=== PATIENT | male | born 1995 | race Caucasian/White ===

== ENCOUNTER 2018-03-16 20:22 | Emergency (ER) | payer BC ==
[2018-03-16 20:48] VITALS: BP 127/54
[2018-03-16] MEDS ORDERED: Tetracaine 0.5% OPTH.SOL 4 ML* 1 DROP BTL RIGHT EYE ONE (20:56)
[2018-03-16] MEDS ORDERED: Fluorescein Sod TOPICAL 0.6* 0.6 MG TEST OPHTHALMIC ONE (20:57)
--- NOTE | 2018-03-16 21:08 | UC ---
Eye Complaint HPI - HPI Summary HPI Summary: C/O ? FB 03/14/18. Seen [facility] and started on erythromycin opth oint for corneal abrasion. - History of Current Complaint Chief Complaint: UCEye Stated Complaint: RIGHT EYE CONCERN Time Seen by Provider: 03/16/18 20:54 Hx Obtained From: Patient Onset/Duration: Sudden Onset, Lasting Days - 2, Still Present, Worse Since - today Timing: Constant Severity Initially: Moderate Severity Currently: Severe Pain Intensity: 9 Location of Injury: Conjunctiva Character: Sharp, Foreign Body Sensation Aggravating Factor(s): Blinking, Other - erythromycin ointment Alleviating Factor(s): Darkness Related History: Diagnosed As: - corneal abrasion - Allergies/Home Medications Allergies/Adverse Reactions: Allergies Allergy/AdvReac Type Severity Reaction Status Date / Time shrimp Allergy Difficulty Verified 03/16/18 20:49 Breathing Home Medications: Home Medications Clear Eye Otc Drops 2 drop RIGHT EYE QID PRN 03/16/18 [History Confirmed ] Erythromycin OPTH OINT* [Erythromycin 0.5% OPTH OINT*] 1 applic RIGHT EYE QID [History Confirmed 03/16/18] PMH/Surg Hx/FS Hx/Imm Hx Previously Healthy: Yes - Surgical History Surgical History: None - Family History Known Family History: Positive: Diabetes - Social History Occupation: Employed Full-time Lives: With Family Alcohol Use: Occasionally Substance Use Type: None Smoking Status (MU): Former Smoker Amount Used/How Often: 1.5 cans per day - Immunization History Most Recent Tetanus Shot: UTD Review of Systems Eyes: Eye Redness Is Patient Immunocompromised?: No All Other Systems Reviewed And Are Negative: Yes Physical Exam Triage Information Reviewed: Yes Appearance: Well-Appearing, Well-Nourished, Pain Distress Vital Signs: Initial Vital Signs Temp 99.2 F 03/16/18 20:33 Pulse 83 03/16/18 20:33 BP 127/54 03/16/18 20:33 Pulse Ox 99 03/16/18 20:33 Vital Signs Reviewed: Yes Eyes: Positive: Conjunctiva Inflamed - OD with discharge., Other: - fluorescein positive right temporal lower cornea at 8 PM 2-3mm uptake. ENT: Positive: Pharynx normal Neck exam: Normal Respiratory Exam: Normal Cardiovascular Exam: Normal Musculoskeletal Exam: Normal Neurological Exam: Normal Psychological Exam: Normal Skin Exam: Normal Eye Complaint Course/Dx - Differential Dx/Diagnosis Differential Diagnosis/HQI/PQRI: Conjunctivitis, Corneal Abrasion, Periorbital Cellulitis Provider Diagnoses: Corneal abrasion. Discharge - Sign-Out/Discharge Documenting (check all that apply): Patient Departure All imaging exams completed and their final reports reviewed: No Studies - Discharge Plan Condition: Stable Disposition: HOME Patient Education Materials: Corneal Abrasion (ED), Sulfacetamide (Into the eye ) Referrals: Herrera Li MD [Primary Care Provider] - Trev Wei MD [Medical Doctor] - 1 Day (Call for appointment tomorrow. Corneal abrasion that is not healing.) Additional Instructions: You might be having an allergic reaction to the erythromycin ointment. - Billing Disposition and Condition Condition: STABLE Disposition: Home
[2018-03-16] MEDS ORDERED: Sulfacetamide 10 % OPTH.SOL RIGHT EYE ONE (21:10)
== END 2018-03-16 21:26 | disposition home or self-care (01) ==
LOC: UCCORT 20:22
DX: S05.01XA Injury of conjunctiva and corneal abrasion without foreign body, right eye, initial encounter (principal); X58.XXXA Exposure to other specified factors, initial encounter; Y93.9 Activity, unspecified; Y92.9 Unspecified place or not applicable; Z87.891 Personal history of nicotine dependence
CPT/HCPCS: 99202; A9270-GY; G0463

== ENCOUNTER 2019-04-15 18:29 | Emergency (ER) | payer BC ==
[2019-04-15 19:47] VITALS: BP 149/76
--- NOTE | 2019-04-15 20:08 | ED ---
Throat Pain/Nasal Congestion - HPI Summary HPI Summary: 24 yr old with 1.5 weeks of URI symptoms, runny nose, coughing, and left ear pain for three to four days now. He denies fever and chills. He denies productive cough. He has no other complaints. - History of Current Complaint Chief Complaint: UCEar Time Seen by Provider: 04/15/19 19:48 - Allergies/Home Medications Allergies/Adverse Reactions: Allergies Allergy/AdvReac Type Severity Reaction Status Date / Time shrimp Allergy Difficulty Verified 04/15/19 19:43 Breathing PMH/Surg Hx/FS Hx/Imm Hx Infectious Disease History: No Infectious Disease History: Denies: Traveled Outside the [place] in Last 30 Days - Family History Known Family History: Positive: Diabetes - Social History Occupation: Employed Full-time Alcohol Use: Occasionally Substance Use Type: Reports: None Smoking Status (MU): Former Smoker Amount Used/How Often: 1.5 cans per day Review of Systems Constitutional: Negative Positive: Ear Ache, Nasal Discharge Positive: Cough All Other Systems Reviewed And Are Negative: Yes Physical Exam Triage Information Reviewed: Yes Vital Signs On Initial Exam: Initial Vitals Temp Pulse Resp BP Pulse Ox 98 F 76 16 149/76 99 04/15/19 19:44 04/15/19 19:44 04/15/19 19:44 04/15/19 19:44 04/15/19 19:44 Vital Signs Reviewed: Yes Appearance: Positive: Well-Appearing, No Pain Distress Skin: Positive: Warm, Skin Color Reflects Adequate Perfusion Head/Face: Positive: Normal Head/Face Inspection Eyes: Positive: EOMI ENT: Positive: TM red - left with redness and retraction Neck: Positive: Nontender Respiratory/Lung Sounds: Positive: Clear to Auscultation, Breath Sounds Present Cardiovascular: Positive: RRR. Negative: Murmur Abdomen Description: Negative: Distended Musculoskeletal: Positive: Strength/ROM Intact Neurological: Positive: Sensory/Motor Intact, Alert, Oriented to Person Place, Time, CN Intact II-III, Speech Normal Psychiatric: Positive: Normal Diagnostics - Vital Signs Vital Signs Temp Pulse Resp BP Pulse Ox 04/15/19 19:44 98 F 76 16 149/76 99 - Laboratory Lab Statement: Any lab studies that have been ordered have been reviewed, and results considered in the medical decision making process. EENT Course/Dx - Course Course Of Treatment: 24 yr old with left otitis media. DC home. Amox script - Diagnoses Provider Diagnoses: Otitis media, left Discharge ED - Sign-Out/Discharge Documenting (check all that apply): Patient Departure All imaging exams completed and their final reports reviewed: No Studies - Discharge Plan Condition: Good Disposition: HOME Prescriptions: Amoxicillin PO (*) [Amoxicillin 500 MG CAP*] 500 mg PO TID #30 cap Patient Education Materials: Ear Infection (ED), Hypertension (ED) Referrals: No Primary Care Phys,NOPCP [Primary Care Provider] - [facility] [Outside] - 2 Days - Billing Disposition and Condition Condition: GOOD Disposition: Home
== END 2019-04-15 20:13 | disposition home or self-care (01) ==
LOC: UCCORT 18:29
DX: H66.92 Otitis media, unspecified, left ear (principal); R09.89 Other specified symptoms and signs involving the circulatory and respiratory systems; R05 Cough; Z91.013 Allergy to seafood; Z87.891 Personal history of nicotine dependence
CPT/HCPCS: 99212; G0463